=== PATIENT | male | born 1950 | race Caucasian/White ===

== ENCOUNTER 2020-09-14 12:37 | Emergency (ER) | payer MEDICARE, MEDICAID ==
[~2020-09-14] VITALS: Ht 177.8 cm; Wt 85.7 kg
[~2020-09-14 12:37] MED LIST: HYDR12.55 PO
[2020-09-14 13:01] VITALS: BP 137/89
[2020-09-14] MEDS ORDERED: DOXY100C76 PO (15:41)
[2020-09-14] MEDS ORDERED: AMOX-422 PO (15:41)
== END 2020-09-14 15:52 | disposition home or self-care (01) ==
LOC: ER 12:38
DX: L03.115 Cellulitis of right lower limb (principal); F12.10 Cannabis abuse, uncomplicated; I10 Essential (primary) hypertension; J45.909 Unspecified asthma, uncomplicated
CPT/HCPCS: 99281